=== PATIENT | male | born 1990 | race Caucasian/White ===

== ENCOUNTER 2017-12-26 14:33 | Emergency (ER) | payer BC ==
[~2017-12-26] VITALS: Ht 180.3 cm; Wt 91.1 kg
[2017-12-26 14:49] VITALS: BP 124/72
[2017-12-26] MEDS ORDERED: FLUORESCEIN OPHTHALMIC 1 MG STRIP LEFTEYE ONE (15:00)
[2017-12-26] MEDS ORDERED: DIPH,PERTUSS(ACELL),TET VAC/PF 0.5 ML IM-VACC ONE ×2 (15:00→16:34)
[2017-12-26] MEDS ORDERED: PROPARACAINE OPHTH 0.5%, 15ML LEFTEYE ONE (15:00)
[2017-12-26] MEDS ORDERED: PROPARACAINE OPHTH 0.5%, 15ML ONE (15:37)
[2017-12-26] MEDS ORDERED: FLUORESCEIN OPHTHALMIC 1 MG STRIP ONE (15:37)
== END 2017-12-26 17:43 | disposition home or self-care (01) ==
LOC: ED 17:00
DX: S01.21XA Laceration without foreign body of nose, initial encounter (principal); S05.02XA Injury of conjunctiva and corneal abrasion without foreign body, left eye, initial encounter; J34.2 Deviated nasal septum; W20.8XXA Other cause of strike by thrown, projected or falling object, initial encounter; Y93.89 Activity, other specified; Y92.098 Other place in other non-institutional residence as the place of occurrence of the external cause; Y99.8 Other external cause status
CPT/HCPCS: 12011; 90715; 96372; 99283

== ENCOUNTER 2020-01-19 11:42 | Emergency (ER) | payer BC, OTHER ==
[~2020-01-19] VITALS: Ht 177.8 cm; Wt 99.0 kg
--- NOTE | 2020-01-19 12:34 | NUR ---
PT PRESENTS TO ED WITH C/O BILATERAL POSTERIOR MID THORACIC PAIN, ONSET SUDDEN AFTER COUGHING FORCEFULLY THIS AM (ASPIRATED COFFEE). PT DENIES COUGH/FEVERS/SORE THROAT. PT ATTACHED TO BP AND SPO2 MONITORS. CALL LIGHT IN REACH. PT SEEN AND EXAMINED BY [facility] OSEGUERA, AWAITING ORDERS AT THIS TIME.
[2020-01-19 12:39] VITALS: BP 137/85
[2020-01-19] MEDS ORDERED: KETOROLAC 30 MG/1 ML ONE (12:47)
[2020-01-19] MEDS ORDERED: METHOCARBAMOL 750 MG TABLET ONE (12:47)
[2020-01-19] MEDS ORDERED: METHOCARBAMOL 750 MG TABLET PO ONE (13:00)
[2020-01-19] MEDS ORDERED: KETOROLAC 30 MG/1 ML IM ONE (13:00)
--- NOTE | 2020-01-19 13:22 | NUR ---
pt given dc instructions and script, educated regarding dc rx for robaxan and naproxen. pt a&o, resps even and unlabored. nadn. no complaint at time of dc. pt ambulatory to dc desk with steady gait, all questions answered.
== END 2020-01-19 13:22 | disposition home or self-care (01) ==
LOC: ED 12:56
DX: S29.012A Strain of muscle and tendon of back wall of thorax, initial encounter (principal); G89.11 Acute pain due to trauma; X58.XXXA Exposure to other specified factors, initial encounter; Y93.89 Activity, other specified; Y92.89 Other specified places as the place of occurrence of the external cause; Y99.8 Other external cause status
CPT/HCPCS: 96372; 99283; J1885